=== PATIENT | male | born 1995 | race Caucasian/White ===

== ENCOUNTER 2019-01-07 21:58 | Emergency (ER) | payer SELFPAY ==
[~2019-01-07] VITALS: Ht 165.1 cm; Wt 63.6 kg
[~2019-01-07 21:58] MED LIST: CEPHALEXIN500 M1 PO; MOTRIN 600600 MG/TAB PO; NO HOME MEDICATIONS; NORCO 325 MG-7.1 TAB PO; PERCOCET 325 MG1 TA2 PO; PHENERGAN 25 TA25 MG PO
[2019-01-07 22:02] VITALS: BP 134/69; TEMP 98.7
[2019-01-07] MEDS ORDERED: BACTRIM DS 8001 TAB PO (23:20)
[2019-01-07] MEDS ORDERED: CEPHALEXIN500 M1 PO (23:20)
[2019-01-07 23:30] VITALS: PULSE 78
== END 2019-01-07 23:31 | disposition home or self-care (01) ==
LOC: COL.ER 21:58
DX: L02.512 Cutaneous abscess of left hand (principal); F17.210 Nicotine dependence, cigarettes, uncomplicated
CPT/HCPCS: J1885

== ENCOUNTER 2019-03-11 20:20 | Emergency (ER) | payer OTHER ==
[~2019-03-11] VITALS: Ht 152.4 cm; Wt 63.6 kg
[~2019-03-11 20:20] MED LIST changes: +BACTRIM DS 8001 TAB PO
[2019-03-11 20:25] VITALS: TEMP 98.8
[2019-03-11 20:52] LABS: STREP SCREEN NEGATIVE
[2019-03-11 22:00] VITALS: BP 127/71; PULSE 83
== END 2019-03-11 22:14 | disposition home or self-care (01) ==
LOC: COL.ER 20:20
PROVIDERS: Family Medicine
DX: J02.9 Acute pharyngitis, unspecified (principal); F17.220 Nicotine dependence, chewing tobacco, uncomplicated; Z96.22 Myringotomy tube(s) status

== ENCOUNTER 2021-03-11 15:34 | Emergency (ER) | payer OTHER ==
[~2021-03-11] VITALS: Ht 165.1 cm; Wt 83.2 kg
[2021-03-11] MEDS ORDERED: CEPHALEXIN500 M1 PO (16:36)
[2021-03-11 16:45] VITALS: BP 118/64; PULSE 78; TEMP 97.9
== END 2021-03-11 16:55 | disposition home or self-care (01) ==
LOC: COL.ER 15:34
DX: S80.852A Superficial foreign body, left lower leg, initial encounter (principal); W45.8XXA Other foreign body or object entering through skin, initial encounter

== ENCOUNTER 2024-01-15 10:58 | Emergency (ER) | payer BC ==
[~2024-01-15] VITALS: Ht 165.1 cm; Wt 99.1 kg
[2024-01-15 11:02] VITALS: TEMP 98.7
[2024-01-15 13:25] LABS: BASO % 0.4 % (0.0-2.0); EOS # 0.2 K/mm3 (0.0-0.7); EOS % 1.8 % (0.0-4.0); GRAN # 5.9 K/mm3 (1.4-6.5); GRAN % 61.5 % (42.2-75.2); HEMATOCRIT 48.6 % (42.0-52.0); HEMOGLOBIN 16.7 g/dl (13.5-18.0); LYMPH # 2.6 K/mm3 (1.2-3.4); LYMPH % 27.3 % (20.0-51.0); MEAN CELL VOLUME 89 fl (80.0-100.0); MEAN CORPUSCULAR HEMOGLOBIN 31 pg (27-31); MEAN CORPUSCULAR HGB CONC 34 g/dl (33.0-37.0); MEAN PLATELET VOLUME 10.3 fl (7.4-10.4); MONO # 0.8 K/mm3 (0.1-0.6); MONO % 8.7 % (1.7-9.3); PLATELET COUNT 223 K/mm3 (130-400); RED BLOOD COUNT 5.46 M/mm3 (4.20-5.60); REDCELL DISTRIBUTION WIDTH-CV 12.3 % (11.5-14.5)
[2024-01-15] MEDS ORDERED: Ketorolac 15 MG/ML VIAL IV ONE (13:30)
[2024-01-15 13:34] LABS: ALANINE AMINOTRANSFERASE 23 U/L (0-55); ALKALINE PHOSPHATASE 89 U/L (40-150); ANION GAP 14 mmol/L (7-16); AST,SGOT 23 U/L (5-34); BILIRUBIN,TOTAL 0.5 mg/dL (0.2-1.2); BLOOD UREA NITROGEN 17 mg/dL (9-21); CALCIUM 10.2 mg/dL (8.4-10.2); CHLORIDE 103 mEq/L (98-107); CREATININE, serum 1.04 mg/dL (0.72-1.25); GLUCOSE 80 mg/dL (70-99); POTASSIUM 3.8 mEq/L (3.5-4.5); SODIUM 141 mEq/L (136-145); TOTAL PROTEIN 8.6 g/dl (6.2-8.1)
[2024-01-15 13:46] LABS: TROPONIN-I < 0.010 ng/mL (0.00-0.033)
[2024-01-15 15:04] VITALS: BP 107/49; PULSE 60
== END 2024-01-15 15:10 | disposition home or self-care (01) ==
LOC: COL.ER 10:58
PROVIDERS: Physician Assistant
DX: R00.2 Palpitations (principal); Z87.891 Personal history of nicotine dependence
CPT/HCPCS: J1885